=== PATIENT | female | born 1970 | race Caucasian/White ===

== ENCOUNTER → 2017-07-26 | Outpatient (CLI) | payer OTHER | LOC: FIMAGING 08:36 | PROVIDERS: ATTEND Orthopaedic Surgery | DX: M17.11 Unilateral primary osteoarthritis, right knee (principal); M25.461 Effusion, right knee; M76.891 Other specified enthesopathies of right lower limb, excluding foot ==

== ENCOUNTER 2017-08-12 05:54 | Observation (INO) | payer OTHER ==
[2017-08-12] MEDS ORDERED: TRANEXAMIC ACID 2,000 MG in NS 100 ML IV ONE (06:00)
[2017-08-12] MEDS ORDERED: TRANEXAMIC ACID 1,000 MG in NS 100 ML IV ONE (06:00)
[2017-08-12] MEDS ORDERED: ROPIVACAINE 0.2% 80 MG, EPINEPHrine 0.2 MG, KETOROLAC TROMETHAMINE 30 MG, morphINE 10 M... IU ONE (06:00)
[2017-08-12] MEDS ORDERED: DEXAMETHASONE 4 MG/ML VIAL IVP ONE (06:11)
[2017-08-12] MEDS ORDERED: ACETAMINOPHEN 325 MG TAB PO ONE (06:11)
[2017-08-12] MEDS ORDERED: FAMOTIDINE 20 MG TAB PO ONE (06:11)
[2017-08-12] MEDS ORDERED: ceFAZolin 2 GM/DEXTROSE 100 ML IV ONE (06:11)
[2017-08-12] MEDS ORDERED: LR 1,000 ML IV ONE (06:12)
[2017-08-12] MEDS ORDERED: LIDOCAINE 1% 2 ML INJ ID PRN (06:12)
--- NOTE | 2017-08-12 06:24 | PDHPUP ---
History & Physical Update H&P update statement: This history and physical update is based on an assessment of the patient which was completed after admission or registration (within 24 hours), but prior to the surgery/procedure. H&P update: no change in patient's condition since H&P completed
--- NOTE | 2017-08-12 06:26 | PDIAF ---
- Diagnosis Diagnosis: right pf replacement Code Status: Full Code - Medication Management Discharge Medications: Medications to Continue on Transfer Atorvastatin Calcium [Lipitor 20 mg (*)] 20 mg PO DAILY 07/23/17 [Last Taken Unknown] FLUoxetine HCL [Fluoxetine HCl] 40 mg PO DAILY 07/23/17 [Last Taken Unknown] Glucosamine Sulfate Dipot Chlr [Glucosamine] 1,500 mg PO DAILY 07/23/17 [Last Taken Unknown] Herbals/Supplements -Info Only 1 ea PO DAILY 07/23/17 [Last Taken Unknown] Ibuprofen [Motrin (*)] 200 - 600 mg PO Q6 PRN 07/23/17 [Last Taken Unknown] Lisinopril [Zestril 40 mg (*)] 40 mg PO DAILY 07/23/17 [Last Taken Unknown] Marlissa Control 1 tab PO DAILY 07/23/17 [Last Taken Unknown] Omeprazole 40 mg PO DAILY 07/23/17 [Last Taken Unknown] Aspirin 07/29/17 [Last Taken Unknown] Flonase Nasal [place] 07/29/17 [Last Taken Unknown] Discharge Medications: Refer to the Discharge Home Medication list for PRN reason. - Orders Services needed: Physical Therapy Diet Recommendation: no restrictions on diet Diet Texture: Regular Texture Diet Activity/Weight Bearing Restrictions: wbat. rom as alivia. keep dressing in place unless it becomes saturated. may shower with bandage. seek attn for increasing pain, chest pain, sob, leg pain, drainage or other focal complaint. f/u at two weeks Additional Instructions: TOTAL JOINT ARTHROPLASTY DISCHARGE INSTRUCTIONS 1. Your surgeon follows the [facility] protocol for reducing your risk of DVT (blood clots) following surgery. Medication will be ordered to prevent blood clots. A sudden increase in calf pain and/or swelling could indicate a blood clot in your leg. If this occurs, please call your surgeon or his/her wet process assistant head miller. An ultrasound of the leg may be necessary to diagnose a blood clot. If you have conditions that make you a higher risk for blood clots, your surgeon may use more aggressive ways to prevent them. Notify your surgeon if you think you are a high risk for blood clots. 2. Wear your white surgical stockings (GABRIELA hose) for 2 weeks. This decreases your swelling and may help prevent blood clots. It is ok to remove GABRIELA hose at night time to give your legs a break. 3. Swelling and bruising in the surgical leg is common. If you feel that it is excessive, please notify your surgeon. 4. Elevate your surgical leg with the ankle above the hip several times every day. Please keep the leg straight when you elevate by putting pillows under your foot. Do not put pillows under your knee. This will make being able to fully straighten more difficult. This is uncomfortable, but try to do it as much as possible. 5. For total knee replacements use compressive wrap on your knee for 3-5 days after surgery, then you can discontinue it. 6. Use a walker or crutches for 1-2 weeks. Progress your weight-bearing as tolerated. You may start to use a cane when you feel stable and safe. 7. You will receive physical therapy instructions in the hospital. Continue those exercises at home. There are additional exercises in the total joint booklet you were given before surgery. Outpatient physical therapy will begin 7- 10 days after surgery. Please schedule this in advance. 8. Use ice on your knee at least 3-5 times every day for 30 minutes. This helps reduce pain and swelling. Also use it at night before falling asleep. 9. Leave your surgical dressing in place for 2 weeks. Your dressing is water resistant, but not waterproof. Cover it with Saran Wrap or Mlrec-k-Vilk before showering. You may shower as soon as you feel safe entering a shower. If you notice bleeding from your incision 2 or 3 days after surgery, please notify your surgeon. 10. Due to narcotics, decreased activity and altered diet, most patients experience constipation after surgery. Use oarr-dhy-jmqvnrg stool softeners while you are on narcotics. 11. You may drive a car when you are comfortable bearing weight, have good muscular control of your leg and are off narcotics. This usually occurs 2-4 weeks after surgery, depending on which leg was operated on. 12. If there are questions not addressed here, please refer the [facility] book given for more information. If you still have questions, please contact your surgeon s office. 13. If you have a life-threatening emergency, please call 911 and go to the emergency room immediately. For non-life threatening emergencies, please call your physicians office for advice before going to the emergency room. - Follow Up Care Current Providers and Referrals: Giovanna Liu MD [Primary Care Provider] - Keo Noel MD [Medical Doctor] -
[2017-08-12] MEDS ORDERED: CALCIUM CHLORIDE 1 GM/10 ML INJ ONE (06:46)
[2017-08-12] MEDS ORDERED: THROMBIN (BOVINE) 5,000 UNIT VIAL TP ONE (06:46)
[2017-08-12] MEDS ORDERED: ceFAZolin 1 GM/5 ML SYR ONE (06:46)
[2017-08-12] MEDS ORDERED: MIDAZOLAM 2 MG/2 ML VIAL IVP ONE (07:01)
--- NOTE | 2017-08-12 07:05 | PDANEPAE ---
ANE History of Present Illness 47 year with right knee arthritis ANE Past Medical History - Cardiovascular History Hx Hypertension: Yes Hx Arrhythmias: No Hx Chest Pain: No Hx Coronary Artery / Peripheral Vascular Disease: No Hx CHF / Valvular Disease: No Hx Palpitations: No - Pulmonary History Hx COPD: No Hx Asthma/Reactive Airway Disease: No Hx Recent Upper Respiratory Infection: No Hx Oxygen in Use at Home: No Hx Sleep Apnea: No Sleep Apnea Screening Result - Last Documented: Negative - Neurologic History Hx Cerebrovascular Accident: No Hx Seizures: No Hx Dementia: No - Endocrine History Hx Diabetes: No - Renal History Hx Renal Disorders: No - Liver History Hx Hepatic Disorders: No - Neurological & Psychiatric Hx Hx Neurological and Psychiatric Disorders: No 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 - Cancer History Hx Cancer: No - Congenital Disorder History Hx Congenital Disorders: No - GI History Hx Gastrointestinal Disorders: Yes Gastrointestinal History Comment: gerd,reflux - Other Health History Other Health History: none - Chronic Pain History Chronic Pain: No - Surgical History Prior Surgeries: none ANE Review of Systems Review of systems is: negative Review of Systems: - Exercise capacity METS (RN): 4 METS ANE Patient History - Allergies Allergies/Adverse Reactions: Sulfa (Sulfonamide Antibiotics) Allergy (Verified 07/29/17 16:56) Other-Enter Comments - Home Medications Home medications: home medication list seen and reviewed Home Medications: Atorvastatin Calcium [Lipitor 20 mg (*)] 20 mg PO DAILY 07/23/17 [Last Taken Unknown] FLUoxetine HCL [Fluoxetine HCl] 40 mg PO DAILY 07/23/17 [Last Taken Unknown] Glucosamine Sulfate Dipot Chlr [Glucosamine] 1,500 mg PO DAILY 07/23/17 [Last Taken Unknown] Herbals/Supplements -Info Only 1 ea PO DAILY 07/23/17 [Last Taken Unknown] Ibuprofen [Motrin (*)] 200 - 600 mg PO Q6 PRN 07/23/17 [Last Taken Unknown] Lisinopril [Zestril 40 mg (*)] 40 mg PO DAILY 07/23/17 [Last Taken Unknown] Marlissa Control 1 tab PO DAILY 07/23/17 [Last Taken Unknown] Omeprazole 40 mg PO DAILY 07/23/17 [Last Taken Unknown] Aspirin 07/29/17 [Last Taken Unknown] Flonase Nasal [place] 07/29/17 [Last Taken Unknown] - NPO status NPO Since - Liquids (Date): 08/11/17 NPO Since - Liquids (Time): 20:00 NPO Since - Solids (Date): 08/11/17 NPO Since - Solids (Time): 20:00 - Anes Hx Anes Hx: no prior problems - Smoking Hx Smoking Status: Former smoker - Alcohol Use Alcohol Use: Occasionally - Family Anes Hx Family Hx Anesthesia Complications: mother had problems after anesthesia, pt unable to remember details ANE Labs/Vital Signs - Vital Signs Blood Pressure: 171/82 Heart Rate: 99 Respiratory Rate: 16 O2 Sat (%): 96 Height: 172.72 cm Weight: 99.79 kg ANE Physical Exam - Airway Neck exam: FROM Mallampati Score: Class 2 Mouth exam: normal dental/mouth exam - Pulmonary Pulmonary: no respiratory distress - Cardiovascular Cardiovascular: regular rate and rhythym - ASA Status ASA Status: II ANE Anesthesia Plan Anesthesia Plan: general endotracheal anesthesia Regional Anesthesia: adductor canal FNB
[2017-08-12] MEDS ORDERED: MIDAZOLAM 2 MG/2 ML VIAL ONE (07:06)
[2017-08-12] MEDS ORDERED: KETOROLAC 30 MG/1 ML SDV ONE (07:15)
[2017-08-12] MEDS ORDERED: fentaNYL 250 MCG/5 ML INJ ONE (07:15)
[2017-08-12] MEDS ORDERED: ONDANSETRON 4 MG/2 ML VIAL ONE (07:15)
[2017-08-12] MEDS ORDERED: PROPOFOL 200 MG/20 ML VIAL ONE (07:15)
[2017-08-12] MEDS ORDERED: LIDOCAINE 2% 5 ML SDV ONE (07:15)
[2017-08-12] MEDS ORDERED: LIDOCAINE 2% JELLY 5 ML TUBE ONE (07:21)
[2017-08-12] MEDS ORDERED: POLYETHYLENE GLYCOL 3350 17 GM PKT PO PRN (08:11)
[2017-08-12] MEDS ORDERED: diphenhydrAMINE 25 MG CAP PO PRN (08:11)
[2017-08-12] MEDS ORDERED: MAGNESIUM HYDROXIDE 30 ML UDCUP PO PRN (08:11)
[2017-08-12] MEDS ORDERED: TEMAZEPAM 15 MG CAP PO PRN (08:11)
[2017-08-12] MEDS ORDERED: CYCLOBENZAPRINE 10 MG TAB PO PRN (08:11)
[2017-08-12] MEDS ORDERED: oxyCODONE IR 5 MG TAB PO PRN (08:11)
[2017-08-12] MEDS ORDERED: PROMETHAZINE HCL 25 MG/ML INJ IVP PRN ×2 (08:11→09:01)
[2017-08-12] MEDS ORDERED: ONDANSETRON 4 MG/2 ML VIAL IVP PRN ×2 (08:11→09:01)
[2017-08-12] MEDS ORDERED: DIPHENOXYLATE/ATROPINE LOMOTIL 1 TAB PO PRN (08:11)
[2017-08-12] MEDS ORDERED: BISACODYL 10 MG SUPP PR PRN (08:11)
[2017-08-12] MEDS ORDERED: PROMETHAZINE HCL 25 MG SUPPR PR PRN (08:11)
[2017-08-12] MEDS ORDERED: LACTULOSE 20 GM/30 ML UDCUP PO PRN (08:11)
[2017-08-12] MEDS ORDERED: ONDANSETRON DISINTEGRATING 4 MG TAB PO PRN (08:11)
[2017-08-12] MEDS ORDERED: METOCLOPRAMIDE 10 MG/2 ML VIAL IVP PRN (08:11)
--- NOTE | 2017-08-12 08:11 | POSTOPPROG ---
Post Op Note Date of Operation: 08/12/17 Surgeon: Keo Noel Animal Doctor: kami Anesthesiologist: warm Anesthesia: GET(General Endotracheal) Pre-op Diagnosis: right knee pf arthritis Post-op Diagnosis: same Indication: same Procedure: right pf replacement Inf/Abcess present in the surg proc area at time of surgery?: No Depth: Deep Incisional (Fascial) EBL: 50-100
[2017-08-12] MEDS ORDERED: TRANEXAMIC ACID 650 MG TAB PO SCH ×2 (08:15→12:00)
[2017-08-12] MEDS ORDERED: LR 1,000 ML IV SCH (08:30)
[2017-08-12] MEDS: fentaNYL 100 MCG/2 ML INJ IVP PRN ×2 (08:44→08:50)
[2017-08-12] MEDS ORDERED: fentaNYL 100 MCG/2 ML INJ ONE (08:45)
[2017-08-12] MEDS ORDERED: LEVONORGESTREL PO SCH (09:00)
[2017-08-12] MEDS ORDERED: ATORVASTATIN CALCIUM 20 MG TAB PO SCH (09:00)
[2017-08-12] MEDS ORDERED: FLUoxetine 20 MG CAP PO SCH (09:00)
[2017-08-12] MEDS ORDERED: ETHINYL ESTRADIOL PO SCH (09:00)
[2017-08-12] MEDS ORDERED: LISINOPRIL 40 MG TAB PO SCH (09:00)
[2017-08-12] MEDS ORDERED: SENNOSIDES/DOCUSATE SODIUM TAB PO SCH (09:00)
[2017-08-12] MEDS ORDERED: PANTOPRAZOLE SODIUM 40 MG TAB PO SCH (09:00)
[2017-08-12] MEDS ORDERED: NALOXONE HCL 0.4 MG/ML INJ IVP PRN (09:01)
--- NOTE | 2017-08-12 09:02 | POSTANESTH ---
Post Anesthetic Evaluation Cardiovascular Status: Normal, Stable Respiratory Status: Normal, Stable Level of Consciousness/Mental Status: Can Participate in Eval Pain Control: Inadeq, Add Tx Required Nausea/Vomiting Control: Adequate, Prn Tx Ordered
[2017-08-12] MEDS ORDERED: HYDROmorphONE/DILAUDID 1 MG/ML INJ ONE (09:10)
[2017-08-12] MEDS: HYDROmorphONE/DILAUDID 1 MG/ML INJ IVP PRN ×3 (09:11→09:41)
[2017-08-12] MEDS ORDERED: ACETAMINOPHEN 325 MG TAB PO SCH (12:00)
--- NOTE | 2017-08-12 12:42 | PDIAF ---
- Diagnosis Diagnosis: right pf replacement Code Status: Full Code - Medication Management Discharge Medications: Medications to Continue on Transfer Atorvastatin Calcium [Lipitor 20 mg (*)] 20 mg PO DAILY 07/23/17 [Last Taken Unknown] FLUoxetine HCL [Fluoxetine HCl] 40 mg PO DAILY 07/23/17 [Last Taken Unknown] Glucosamine Sulfate Dipot Chlr [Glucosamine] 1,500 mg PO DAILY 07/23/17 [Last Taken Unknown] Herbals/Supplements -Info Only 1 ea PO DAILY 07/23/17 [Last Taken Unknown] Lisinopril [Zestril 40 mg (*)] 40 mg PO DAILY 07/23/17 [Last Taken Unknown] Marlissa Control 1 tab PO DAILY 07/23/17 [Last Taken Unknown] Omeprazole 40 mg PO DAILY 07/23/17 [Last Taken Unknown] Fluticasone Nasal [Flonase Nasal [place]] 1 sprays NASAL DAILY 07/29/17 [Last Taken Unknown] Aspirin [Aspirin 325 mg (*)] 325 mg PO DAILY tab 08/12/17 [Last Taken Unknown] oxyCODONE IR [Oxycodone Ir (*)] 5 - 10 mg PO Q3HRS PRN #50 tab 08/12/17 [Last Taken Unknown] Discharge Medications: Refer to the Discharge Home Medication list for PRN reason. - Orders Services needed: Physical Therapy Diet Recommendation: no restrictions on diet Diet Texture: Regular Texture Diet Activity/Weight Bearing Restrictions: wbat. rom as alivia. keep dressing in place unless it becomes saturated. may shower with bandage. seek attn for increasing pain, chest pain, sob, leg pain, drainage or other focal complaint. f/u at two weeks Additional Instructions: TOTAL JOINT ARTHROPLASTY DISCHARGE INSTRUCTIONS 1. Your surgeon follows the [facility] protocol for reducing your risk of DVT (blood clots) following surgery. Medication will be ordered to prevent blood clots. A sudden increase in calf pain and/or swelling could indicate a blood clot in your leg. If this occurs, please call your surgeon or his/her radiology physician assistant. An ultrasound of the leg may be necessary to diagnose a blood clot. If you have conditions that make you a higher risk for blood clots, your surgeon may use more aggressive ways to prevent them. Notify your surgeon if you think you are a high risk for blood clots. 2. Wear your white surgical stockings (GABRIELA hose) for 2 weeks. This decreases your swelling and may help prevent blood clots. It is ok to remove GABRIELA hose at night time to give your legs a break. 3. Swelling and bruising in the surgical leg is common. If you feel that it is excessive, please notify your surgeon. 4. Elevate your surgical leg with the ankle above the hip several times every day. Please keep the leg straight when you elevate by putting pillows under your foot. Do not put pillows under your knee. This will make being able to fully straighten more difficult. This is uncomfortable, but try to do it as much as possible. 5. For total knee replacements use compressive wrap on your knee for 3-5 days after surgery, then you can discontinue it. 6. Use a walker or crutches for 1-2 weeks. Progress your weight-bearing as tolerated. You may start to use a cane when you feel stable and safe. 7. You will receive physical therapy instructions in the hospital. Continue those exercises at home. There are additional exercises in the total joint booklet you were given before surgery. Outpatient physical therapy will begin 7- 10 days after surgery. Please schedule this in advance. 8. Use ice on your knee at least 3-5 times every day for 30 minutes. This helps reduce pain and swelling. Also use it at night before falling asleep. 9. Leave your surgical dressing in place for 2 weeks. Your dressing is water resistant, but not waterproof. Cover it with Saran Wrap or Uzevf-t-Hukp before showering. You may shower as soon as you feel safe entering a shower. If you notice bleeding from your incision 2 or 3 days after surgery, please notify your surgeon. 10. Due to narcotics, decreased activity and altered diet, most patients experience constipation after surgery. Use onoj-suz-uwgpnkh stool softeners while you are on narcotics. 11. You may drive a car when you are comfortable bearing weight, have good muscular control of your leg and are off narcotics. This usually occurs 2-4 weeks after surgery, depending on which leg was operated on. 12. If there are questions not addressed here, please refer the [facility] book given for more information. If you still have questions, please contact your surgeon s office. 13. If you have a life-threatening emergency, please call 911 and go to the emergency room immediately. For non-life threatening emergencies, please call your physicians office for advice before going to the emergency room. - Follow Up Care Current Providers and Referrals: Giovanna Liu MD [Primary Care Provider] - Keo Noel MD [Medical Doctor] -
--- NOTE | 2017-08-12 12:43 | SOAPPROG ---
SOAP Progress Note Assessment/Plan: Assessment: s/p partial knee Plan:doing well no complaints cleared by pt dvt precautions reviewed 08/12/17 12:42 Subjective: no cp or sob tolerating po Objective: Vital Signs Temp Pulse Resp BP Pulse Ox 36.7 C 94 16 141/73 H 92 08/12/17 12:28 08/12/17 12:28 08/12/17 12:28 08/12/17 12:28 08/12/17 12:28 08/11/17 08/12/17 08/13/17 05:59 05:59 05:59 Intake Total 2000 Output Total 50 Balance 1950 dressing intact intact pf,df, ehl t toes warm and pink neg homans carmen xrays stableno fx or lucency ICD10 Worksheet Patient Problems: Problems Problem Status Onset Arthritis of knee Acute - ICD10 Problem Qualifiers (1) Arthritis of knee
[2017-08-12 13:41] VITALS: BP 158/83
[2017-08-12] MEDS ORDERED: ceFAZolin 2 GM/DEXTROSE 100 ML IV SCH (14:00)
--- NOTE | 2017-08-12 16:24 | ASDISCHSUM ---
Discharge Information Plan Status:Home with Home Health Medically Cleared to Leave: Discharge Date:08/12/2017 03:42 PM CM D/C Disposition:Home Health Service ADT D/C Disposition:Home Health Service Projected Discharge Date:08/12/2017 11:00 AM Transportation at D/C: Discharge Delay Reason: Follow-Up Date:08/12/2017 11:00 AM Discharge Slot: Final Diagnosis: Placement Information Referral Type:*Home Health Care Services Referral ID:[id number] Provider Name:[facility] Address 1[address] Address 2: City:[place] Selection Factors: State:[place] Patient Contact Information Contact Name:LIDA Relationship: Address:[address] City:[place] Phone: State/Zip Code:[place] [address] Email: Financial Information Financial Class:[facility] Primary Plan Desc:[facility] Primary Plan Number:[id number] Secondary Plan Desc: Secondary Plan Number: Assessment Information Case Management Discharge Plan Note Case Management Discharge Discharge Order Complete? Answers: Yes Patient to Obtain Answers: via Family Medications Transportation Arranged Answers: Family/Friends Faxed Final Orders Answers: Yes Notes: available on [employer] Family Notified Answers: Yes Discharge Comments Notes: Pt will dc home with . [facility] PT ordered by . FREDI met w/pt and she aniticapted having [facility]. [facility] able to accept per Jeet. Agency # given to pt and . Discussed w/RN who will call report to [facility]. Date Signed: 08/12/2017 03:46 PM Electronically Signed By:Jen Burrell RN Intervention Information
[2017-08-12] MEDS ORDERED: FAMOTIDINE 20 MG TAB PO SCH (21:00)
[2017-08-12] MEDS ORDERED: ASPIRIN 325 MG TAB PO SCH (21:00)
--- NOTE | 2017-08-14 07:49 | GOP ---
[f rep st] OPERATIVE REPORT DATE OF OPERATION: 08/12/2017 SURGEON: Keo Noel MD HEADER UP: Zana Tillman, CHROMOSOMAL DISORDERS COUNSELOR, MORTGAGE ANALYST, certified ophthalmic surgical assistant who was a medical necessity for the entiret y of the case. PREOPERATIVE DIAGNOSIS: Right patellofemoral joint arthritis. POSTOPERATIVE DIAGNOSIS: Right patellofemoral joint arthritis. PROCEDURE PERFORMED: Right knee patellofemoral partial replacement-MAKOplasty. FINDINGS: SPECIMENS: To pathology, none. INDICATIONS: The patient is a 47-year-old woman with end-stage arthritis to her right knee patellofe moral joint. She has failed all attempts at conservative management. I have recommended operative i ntervention. I have outlined the surgical procedure, risks, benefits, and alternatives. She wished to proceed. Written consent was signed and placed in patient's chart. DESCRIPTION OF PROCEDURE: The patient was identified in the preanesthesia area. The right knee donell rly demarcated as the operative site with indelible marker. She was given 2 g of Ancef intravenously en route to the operative suite. In the OR, general endotracheal anesthesia was administered. Atte ntion was turned to the right knee which was sterilely prepped and draped in usual fashion. Appropri ate time-out procedure was carried out. The limb was exsanguinated with an Esmarch bandage. Tourniq uet inflated to 275 mmHg. Standard anterior midline incision was made. Thick subcutaneous flaps wer e elevated followed by medial parapatellar arthrotomy. Patella was everted, there was grade 4 chondr al change, grade 3 chondral change in the trochlea. The decision was made to proceed with patellofem oral replacement. A separate percutaneous incision was made over the mid thigh and [address] d followed by the femoral reference array. A femoral checkpoint was placed. The bony landmarks were entered into the computer in standard fashion. Using the MAKOplasty robot a resection was made for a size 4 patellofemoral component. Trial reduction was carried out. The patella was then everted cu t in a freehand cutting technique. Drill holes made for a size 35 mm poly patella. A press fit miller lla was then placed confirmed to be fully seated. The trochlea was then thoroughly cleansed and drie d and a size 4 MAKOplasty patella femoral component cemented. All marginal cement was withdrawn. Th is was held in 20 degrees of flexion with pressure directly across the anterior aspect of the trochle a until the cement had fully cured. The margins were instilled with a joint cocktail of ropivacaine, morphine, Toradol, and epinephrine. The medial parapatellar arthrotomy closed using #1 Ethibond sut ure. The subcutaneous tissue closed using 2-0 Monocryl and the skin was stapled. Sterile dressing w as applied. The patient was awakened, extubated and taken to the recovery room in good stable condit ion. TOTAL TOURNIQUET TIME: 30 minutes. COMPLICATIONS: None. IMPLANTS: As above. DISPOSITION: To the recovery room, then the floor. She is weightbearing range of motion as tolerate d. /[id number]/MODL
--- NOTE | 2017-08-14 08:14 | GDS ---
[f rep st] DISCHARGE SUMMARY PROCEDURE: Right patellofemoral partial knee replacement. OPERATIVE INDICATIONS: The patient is a 47-year-old woman with end-stage arthritis to her right knee patellofemoral joint. She has failed all attempts at conservative management. She presents for jeannette ctive partial knee replacement. HOSPITAL COURSE: The patient was admitted to the hospital floor for postoperative management. She q uickly progressed with Physical Therapy and was discharged home the same day. At the time of dischar ge, she is tolerating an oral diet. Pain is well controlled on oral medicine. She is voiding withou t difficulty. Dressing is clean, dry, and intact. She has no calf swelling or tenderness. X-rays a re stable. DISCHARGE ACTIVITY: Weightbearing as tolerated. Range of motion as tolerated, ice as needed. DISCHARGE INSTRUCTIONS: Follow up in 2 weeks. Seek attention for increasing redness, swelling, drbarb nage. DISCHARGE MEDICATIONS: Oxycodone 5 mg 1-2 every 6 hours p.r.n. pain and aspirin 325 mg p.o. daily. /[id number]/MODL
== END 2017-08-12 15:42 | disposition home health service (06) ==
LOC: INTOOBSV 05:54 → F3N 05:54
PROVIDERS: ADMIT Orthopaedic Surgery; ATTEND Orthopaedic Surgery
DX: M17.11 Unilateral primary osteoarthritis, right knee (principal)
CPT/HCPCS: 27438; 73560; 97161; 97165; 97535; G0378; S2900; C1713; J0171; J0690; J1100; J1170; J1885; J2250; J2270; J2405; J2704; J2795; J3010

== ENCOUNTER → 2017-09-20 | Outpatient (CLI) | payer OTHER | LOC: BMCIMAGING 08:24 | PROVIDERS: ATTEND Physician Assistant | DX: Z47.1 Aftercare following joint replacement surgery (principal); Z96.651 Presence of right artificial knee joint ==

== ENCOUNTER → 2017-10-31 | Outpatient (CLI) | payer OTHER | LOC: BMCIMAGING 08:23 | PROVIDERS: ATTEND Orthopaedic Surgery | DX: Z47.89 Encounter for other orthopedic aftercare (principal); M17.11 Unilateral primary osteoarthritis, right knee; R93.6 Abnormal findings on diagnostic imaging of limbs; Z96.651 Presence of right artificial knee joint ==

== ENCOUNTER → 2018-01-30 | Outpatient (CLI) | payer OTHER | LOC: BMCIMAGING 08:44 | PROVIDERS: ATTEND Orthopaedic Surgery | DX: Z47.1 Aftercare following joint replacement surgery (principal); Z96.653 Presence of artificial knee joint, bilateral ==